=== PATIENT | female | born 1940 | race Caucasian/White ===

== ENCOUNTER 2020-04-07 15:44 | Emergency (ER) | payer MEDICARE ==
[~2020-04-07] VITALS: Ht 157.5 cm; Wt 70.0 kg
--- NOTE | 2020-04-07 15:50 | NUR ---
PT BIB EMS FOR [facility] LAST WEEK. PT FELL TO BOTTOM AND BACK. DENIES ANY TRAUMA, NO PROBLEMS WALKING, NO DEFORMITY. MARILEE LOC, DENIES CP OR SOB
--- NOTE | 2020-04-07 16:15 | NUR ---
PT IN XRAY
[2020-04-07] MEDS ORDERED: PLEASE ENTER HEIGHT AND WEIGHT MC SCH (16:30)
[2020-04-07] MEDS ORDERED: HYDROcodone/APAP 5/325 TABLET PO ONE (16:30)
[2020-04-07] MEDS ORDERED: HYDROcodone/APAP 5/325 TABLET ONE (16:38)
--- NOTE | 2020-04-07 17:51 | NUR ---
PT REQUESTING RESULTS OF XRAYS. DENIES PAIN AT THIS TIME.
--- NOTE | 2020-04-07 18:19 | NUR ---
REPOSITIONED IN BED, PLAN FOR CT
--- NOTE | 2020-04-07 18:47 | NUR ---
REPORT TO ALYCE.
--- NOTE | 2020-04-07 18:48 | NUR ---
REPORT FROM KEISHA HAHN. PT IN IMAGING.
--- NOTE | 2020-04-07 19:07 | NUR ---
PT RESTING IN BED, NO COMPLAINTS OF PAIN, RESPIRATIONS EVEN AND UNLABORED. ALL NEEDS MET AT THIS TIME. PT CONNECED TO BP, CARDIAC, AND O2 MONITORS. BEDRAILS UP X2, CALL LIGHT AND BELONGINGS IN REACH.
--- NOTE | 2020-04-07 19:48 | NUR ---
LATE ENTRY FOR 1910: NOTED HR AND PULSE RATE DIFFERENT ON MONITORS. EKG DONE, PT STATES "NO CARDIAC HISTORY." ERP MADE AWARE. AWAITING NEUROSURGERY CONSULT.
[2020-04-07 20:02] VITALS: BP 157/79
--- NOTE | 2020-04-07 20:35 | NUR ---
PT LAYING IN BED, RESPIRATIONS EVEN AND UNLABORED, ALL NEEDS MET AT THIS TIME. PT UPDATED ON POC, WAITING FOR ORTHO BRACE.
== END 2020-04-07 21:07 | disposition home or self-care (01) ==
LOC: ED 18:17
DX: S32.040A Wedge compression fracture of fourth lumbar vertebra, initial encounter for closed fracture (principal); I48.20 Chronic atrial fibrillation, unspecified; Z86.73 Personal history of transient ischemic attack (TIA), and cerebral infarction without residual deficits; Z90.710 Acquired absence of both cervix and uterus; Z85.3 Personal history of malignant neoplasm of breast; W01.0XXA Fall on same level from slipping, tripping and stumbling without subsequent striking against object, initial encounter; Y93.89 Activity, other specified; Y92.481 Parking lot as the place of occurrence of the external cause; Y99.8 Other external cause status
CPT/HCPCS: 72072; 72110; 72131; 72220; 93005; 99285